=== PATIENT | female | born 1990 | race Two or more races ===

== ENCOUNTER 2017-11-09 06:33 | Inpatient (IN) | payer OTHER ==
[~2017-11-09] VITALS: Ht 152.4 cm; Wt 79.8 kg
[2017-11-09 06:41] VITALS: Ht 152.4 cm; Wt 79.8 kg
[2017-11-09 08:02] LABS: PLATELET COUNT 281 x10^3mcL (130-400); RED CELL DISTRIBUTION WIDTH 13.1 % (11.5-14.5)
[2017-11-09 08:14] LABS: CALCIUM 8.2 mg/dL (8.5-10.1); CHLORIDE SERUM 110 mmol/L (98-107); CREATININE SERUM 0.6 mg/dL (0.6-1.0); GFR1 > 60 mL/min; GLUCOSE SERUM 82 mg/dL (74-106); POTASSIUM SERUM 3.8 mmol/L (3.5-5.1); SODIUM SERUM 141 mmol/L (136-145)
[2017-11-09 08:25] LABS: ALKALINE PHOSPHATASE 112 U/L (46-116); ALT/SGPT 26 U/L (14-59); AST/SGOT 26 U/L (15-37); BILIRUBIN TOTAL 0.2 mg/dL (0.20-1.00); CHOLESTEROL 182 mg/dL (<200); HDL CHOLESTEROL 39 mg/dL (40-60)
[2017-11-09 08:26] LABS: ALBUMIN 2.2 g/dL (3.4-5.0); TOTAL PROTEIN, SERUM 5.8 g/dL (6.4-8.2)
[2017-11-09] MEDS ORDERED: MOTRIN (11:22)
[2017-11-09 12:02] VITALS: BP 134/77
[2017-11-09 12:22] VITALS: BP 117/75
[2017-11-09 12:45] LABS: CHOLESTEROL/HDL RATIO 4.7
[2017-11-09 12:46] LABS: PHOSPHOROUS 4.3 mg/dL (2.5-4.9)
[2017-11-09 12:48] LABS: MAGNESIUM 1.6 mg/dL (1.8-2.4)
[2017-11-09 12:52] LABS: FREE T4 1.17 ng/dL (0.76-1.46)
[2017-11-09 13:00] LABS: FREE THYROXINE INDEX 3.1 ug/dL (1.4-4.5)
[2017-11-09 13:11] VITALS: BP 117/75
[2017-11-09 17:31] VITALS: BP 116/69
[2017-11-09 20:45] VITALS: BP 136/82
[2017-11-09 23:07] LABS: T3 TOTAL 2.32 ng/mL
[2017-11-10 04:41] VITALS: BP 136/81
[2017-11-10 08:21] VITALS: BP 136/76
[2017-11-10] MEDS ORDERED: ZITHROMAX TRI-500 MG PO (09:21)
[2017-11-10] MEDS ORDERED: LAC PO (09:36)
[2017-11-10 09:42] VITALS: BP 136/76
== END 2017-11-10 11:15 | disposition home or self-care (01) | DRG 561 ==
LOC: ED 06:33 → DU 10:53
PROVIDERS: Emergency Medicine; Family Medicine Sports Medicine
DX: O90.89 Other complications of the puerperium, not elsewhere classified (principal); E43 Unspecified severe protein-calorie malnutrition; I50.43 Acute on chronic combined systolic (congestive) and diastolic (congestive) heart failure; E87.8 Other disorders of electrolyte and fluid balance, not elsewhere classified; E83.42 Hypomagnesemia; F12.10 Cannabis abuse, uncomplicated; Z53.29 Procedure and treatment not carried out because of patient's decision for other reasons; Z98.891 History of uterine scar from previous surgery; Z68.34 Body mass index [BMI] 34.0-34.9, adult
CPT/HCPCS: 36600; 83880; 84439; 85378; 94150; J1940; J2060; J2920; J2930; J3475; J7030; J7613; J7644; Q0092; Q9967

== ENCOUNTER 2018-02-23 17:13 | Emergency (ER) | payer OTHER ==
[~2018-02-23] VITALS: Ht 152.4 cm; Wt 76.7 kg
[~2018-02-23 17:13] MED LIST: LAC PO; MOTRIN; ZITHROMAX TRI-500 MG PO
[2018-02-23 17:18] VITALS: Ht 152.4 cm; Wt 76.7 kg
[2018-02-23 18:00] LABS: CALCIUM 8.8 mg/dL (8.5-10.1); CHLORIDE SERUM 103 mmol/L (98-107); CREATININE SERUM 0.6 mg/dL (0.6-1.0); GFR1 > 60 mL/min; GLUCOSE SERUM 85 mg/dL (74-106); POTASSIUM SERUM 3.5 mmol/L (3.5-5.1); SODIUM SERUM 140 mmol/L (136-145)
[2018-02-23 18:04] LABS: ALKALINE PHOSPHATASE 86 U/L (46-116); ALT/SGPT 31 U/L (14-59); AST/SGOT 17 U/L (15-37); BILIRUBIN TOTAL 0.3 mg/dL (0.20-1.00); LIPASE 87 IU/L (73-393)
[2018-02-23 18:05] LABS: ALBUMIN 3.2 g/dL (3.4-5.0)
[2018-02-23 18:09] LABS: BASOPHIL % 0.5 % (0-2); PLATELET COUNT 280 x10^3mcL (130-400); RED CELL DISTRIBUTION WIDTH 13.1 % (11.5-14.5)
[2018-02-23 21:17] VITALS: BP 152/60
== END 2018-02-23 21:17 | disposition left against medical advice (07) ==
LOC: ED 17:13
PROVIDERS: Emergency Medicine
DX: R10.30 Lower abdominal pain, unspecified (principal); R50.9 Fever, unspecified; R19.7 Diarrhea, unspecified; Z98.890 Other specified postprocedural states
CPT/HCPCS: 36415

== ENCOUNTER 2020-03-03 12:40 | Emergency (ER) | payer OTHER ==
[~2020-03-03] VITALS: Ht 180.3 cm; Wt 79.8 kg
[2020-03-03 14:48] LABS: BASOPHIL % 0.4 % (0-2); PLATELET COUNT 291 x10^3mcL (130-400); RED CELL DISTRIBUTION WIDTH 12.5 % (11.5-14.5)
[2020-03-03 15:38] LABS: CALCIUM 8.9 mg/dL (8.5-10.1); CARBON DIOXIDE 24.6 mmol/L (21-32); CHLORIDE SERUM 101 mmol/L (98-107); CREATININE SERUM 0.6 mg/dL (0.6-1.0); GFR1 > 60 mL/min; GLUCOSE SERUM 78 mg/dL (74-106); POTASSIUM SERUM 3.9 mmol/L (3.5-5.1); SODIUM SERUM 135 mmol/L (136-145)
[2020-03-03 15:40] LABS: microscopic required? NO
[2020-03-03 15:43] LABS: ALKALINE PHOSPHATASE 64 U/L (46-116); ALT/SGPT 25 U/L (14-59); AST/SGOT 17 U/L (15-37); BILIRUBIN TOTAL 0.2 mg/dL (0.20-1.00); TOTAL PROTEIN, SERUM 7.2 g/dL (6.4-8.2)
[2020-03-03 15:48] LABS: urine erythrocyte NEGATIVE (NEGATIVE)
[2020-03-03 15:53] LABS: ALBUMIN 3.3 g/dL (3.4-5.0)
[2020-03-03 16:26] VITALS: BP 107/59
== END 2020-03-03 16:26 | disposition home or self-care (01) ==
LOC: ED 12:40
PROVIDERS: Emergency Medicine
DX: O26.852 Spotting complicating pregnancy, second trimester (principal); Z3A.14 14 weeks gestation of pregnancy
CPT/HCPCS: J7030; Q0092